=== PATIENT | female | born 1940 | race Caucasian/White ===

== ENCOUNTER → 2019-08-28 | Outpatient (CLI) | payer MEDICARE, OTHER ==
--- NOTE | 2019-08-28 16:10 | CT ---
EXAMINATION TYPE: CT chest wo con DATE OF EXAM: 08/28/2019 COMPARISON: HISTORY: pneumonia CT DLP: 244.9 mGycm. Automated Exposure Control for Dose Reduction was Utilized. TECHNIQUE: CT scan of the thorax is performed without IV contrast. FINDINGS: LUNGS: The lungs are grossly clear, there is no concerning parenchymal mass or nodule identified, pun ctate calcifications in the lungs may represent granulomas. There is no pleural effusion or pneumot horax seen. The tracheobronchial tree is patent. MEDIASTINUM: Lack of IV contrast is noted to limit evaluation for mediastinal and especially hilar ad enopathy. There are no definitive greater than 1 cm hilar lymph nodes. Retrocaval pretracheal node is borderline enlarged with a short axis measurement of 11 mm. No cardiomegaly or pericardial effusio n is seen. There are coronary artery calcifications. OTHER: Splenic hilum shows a calcified aneurysm measuring 2 cm. Calcification is present within the s pleen which is indeterminate. IMPRESSION: Noncontrast exam. Borderline lymphadenopathy. Coronary artery disease.
== END | disposition home or self-care (01) ==
LOC: RADCTMAIN 14:03
PROVIDERS: ATTEND Internal Medicine Pulmonary Disease
DX: I25.10 Atherosclerotic heart disease of native coronary artery without angina pectoris (principal); R59.1 Generalized enlarged lymph nodes; E66.9 Obesity, unspecified
CPT/HCPCS: 71250

== ENCOUNTER → 2020-05-25 | Outpatient (CLI) | payer MEDICARE, OTHER ==
--- NOTE | 2020-05-25 21:09 | CT ---
EXAMINATION TYPE: CT angio head neck DATE OF EXAM: 05/25/2020 HISTORY: Cerebral aneurysm COMPARISON: None CT DLP: 1218.8 mGycm. Automated Exposure Control for Dose Reduction was Utilized. TECHNIQUE: CTA scan of the brain is performed with IV Contrast, patient injected with 65 mL of Isovu e 370, axial images are obtained, coronal and sagittal reformatted images are reviewed. Three-D recon structed images are created on an independent workstation and reviewed. Source images are reviewed. FINDINGS: Carotid/Vascular Structures: No significant stenosis of the carotid bifurcations is evident. Internal carotid arteries are patent to the level of the skull base.. Vertebral arteries are patent to the sk ull base. Cervical of Frost: Vertebral basilar system appears normal. Posterior cerebral vasculature is unrema rkable. Internal carotid arteries bifurcate normally into A1 and M1 segments. Right A1 segment may be slightly hypoplastic. A2 segments are normal. The anterior communicating artery is patent. Left Post erior communicating artery is absent. Right posterior communicating artery may be patent. Other: Noncontrast imaging through the brain has some scattered deep white matter hypodensities may b e related to microvascular ischemic change. IMPRESSION: 1. Patient's reported cerebral aneurysm not identified on this exam. If comparison studies can be loc ated, an addendum report can be issued. 2. No flow-limiting stenosis bilateral carotid bifurcations. 3. Normal mechoopda of Frots
== END | disposition home or self-care (01) ==
LOC: RADCTMAIN 14:22
PROVIDERS: ATTEND Neurological Surgery
DX: I67.1 Cerebral aneurysm, nonruptured (principal)
CPT/HCPCS: 82565; 84520; 70496; 70498; 36415; Q9967

== ENCOUNTER 2021-11-29 21:41 | Emergency (ER) | payer MEDICARE, OTHER ==
[2021-11-29 21:59] VITALS: RESP 18
[2021-11-29] MEDS ORDERED: BEBTELOVIMAB (EUA) 175 MG/2 ML VIAL IV ONE (23:45)
[2021-11-30 00:21] VITALS: BP 121/78; PULSE 74; TEMP 99.3
--- NOTE | 2021-11-30 00:27 | ED ---
Fever HPI - General Chief Complaint: Fever Stated Complaint: Covid+/Antibodies Time Seen by Provider: 11/29/21 23:32 Source: patient, family Mode of arrival: wheelchair Limitations: no limitations - History of Present Illness Initial Comments: This patient is 81-year-old woman who presents requesting to have antibody treatment for COVID-19 infection. The patient states that approximately 2 days ago she started having cough, congestion, fevers. She is having mild headache occasionally. Patient did take outside test that was positive for Covid infe ction. Patient denies dyspnea. No vomiting/diarrhea. MD Complaint: fever -: days(s) Temperature Source: subjective Associated Symptoms: cough Treatments Prior to Arrival: Acetaminophen - Related Data Allergies Allergy/AdvReac Type Severity Reaction Status Date / Time No Known Allergies Allergy Verified 11/29/21 21:59 Review of Systems ROS Statement: Those systems with pertinent positive or pertinent negative responses have been documented in the HPI. ROS Other: All systems not noted in ROS Statement are negative. Constitutional: Reports: fever, chills. Denies: weakness Eyes: Denies: eye discharge ENT: Reports: congestion Respiratory: Reports: cough. Denies: dyspnea, wheezes Cardiovascular: Denies: chest pain, palpitations, syncope Gastrointestinal: Denies: abdominal pain, vomiting, diarrhea Genitourinary: Denies: dysuria Skin: Denies: rash Neurological: Reports: headache. Denies: weakness, numbness Past Medical History Past Medical History: CVA/TIA, Hyperlipidemia History of Any Multi-Drug Resistant Organisms: None Reported Past Surgical History: No Surgical Hx Reported Past Psychological History: No Psychological Hx Reported Smoking Status: Never smoker Past Alcohol Use History: None Reported Past Drug Use History: None Reported General Exam Limitations: no limitations General appearance: alert, in no apparent distress Head exam: Present: atraumatic, normocephalic Eye exam: Present: normal appearance. Absent: scleral icterus, conjunctival injection Neck exam: Present: normal inspection, full ROM Respiratory exam: Present: normal lung sounds bilaterally. Absent: respiratory distress, wheezes, rales, rhonchi, stridor Cardiovascular Exam: Present: regular rate, normal rhythm, normal heart sounds. Absent: systolic murmur, diastolic murmur, rubs, gallop GI/Abdominal exam: Present: soft. Absent: distended, tenderness, guarding, rebound, rigid, mass Extremities exam: Present: normal inspection, normal capillary refill. Absent: pedal edema, calf tenderness Back exam: Present: normal inspection. Absent: CVA tenderness (R), CVA tenderness (L) Neurological exam: Present: alert Skin exam: Present: warm, dry, intact, normal color. Absent: rash Course Vital Signs 11/29/21 11/30/21 21:55 00:20 Temperature 99.9 F H 99.3 F Pulse Rate 85 74 Respiratory 18 18 Rate Blood Pressure 110/68 121/78 O2 Sat by Pulse 94 L 96 Oximetry Medical Decision Making - Lab Data Lab Results 11/29/21 Range/Units 22:03 Coronavirus (PCR) Detected A (Not Detectd) Disposition Clinical Impression: COVID-19 Disposition: HOME SELF-CARE Condition: Good Instructions (If sedation given, give patient instructions): COVID-19 (Coronavirus Disease 2019) (ED) Is patient prescribed a controlled substance at d/c from ED?: No Referrals: Lobito Marrero MD [Primary Care Provider] - 1-2 days Time of Disposition: 00:25
== END 2021-11-30 01:49 | disposition home or self-care (01) ==
LOC: EC 21:41
DX: U07.1 COVID-19 (principal)
CPT/HCPCS: 87635; 99283; Q0222

== ENCOUNTER → 2022-12-11 | Outpatient (CLI) | payer MEDICARE, OTHER ==
[2022-12-11 16:00] LABS: Basophils # (A) 0.05 X 10*3/uL (0.00-0.10); Basophils % (A) 0.6 %; Eosinophils # (A) 0.12 X 10*3/uL (0.04-0.35); Eosinophils % (A) 1.5 %; HGB 12.9 d/dL (12.0-15.0); Lymphocytes # (A) 1.89 X 10*3/uL (0.90-5.00); MCH 30.1 pg (27.0-32.0); MCHC 32.3 d/dL (32.0-37.0); MCV 93.5 FL (80.0-97.0); Mean Platelet Volume 10.8 FL (9.5-12.2); Monocytes % (A) 6.1 %; NRBC Per 100 WBC 0 X 10*3/uL (0.00-0.01); Neutrophils # (A) 5.63 X 10*3/uL (1.80-7.70); Neutrophils % (A) 68.6 %; Platelet Count 272 X 10*3/uL (140-440); RBC 4.28 X 10*6/uL (4.10-5.20); RDW 11.9 % (11.5-14.5); WBC 8.21 X 10*3/uL (4.50-10.00)
[2022-12-11 16:03] LABS: ALT 44 U/L (8-44); AST 39 U/L (13-35); Albumin 4.8 d/dL (3.8-4.9); Albumin/Globulin Ratio 2.09 Ratio (1.60-3.17); Alkaline Phosphatase 124 U/L (41-126); BUN/Creat Ratio 8.91 Ratio (12.00-20.00); Blood Urea Nitrogen 9.8 mg/dL (9.0-27.0); Calcium 10.1 mg/dL (8.7-10.3); Chloride 104 mmol/L (96-109); Chol/HDL Ratio 2.56 Ratio; Globulin 2.3 d/dL (1.6-3.3); Glucose 107 mg/dL (70-110); LDL Cholesterol,Calculated 58.7 mg/dL (0.0-131.0); Potassium 4.6 mmol/L (3.5-5.5); Sodium 142 mmol/L (135-145); Total Bilirubin 0.6 mg/dL (0.3-1.2); Total Protein 7.1 d/dL (6.2-8.2)
== END | disposition home or self-care (01) ==
LOC: LABWHC1 09:25
PROVIDERS: ATTEND Family Medicine
DX: Z00.00 Encounter for general adult medical examination without abnormal findings (principal); E55.9 Vitamin D deficiency, unspecified; Z86.73 Personal history of transient ischemic attack (TIA), and cerebral infarction without residual deficits
CPT/HCPCS: 36415; 80053; 80061; 82306; 84443; 85025